=== PATIENT | male | born 1955 | race Caucasian/White ===

== ENCOUNTER 2022-08-27 09:31 | Observation (INO) ==
--- NOTE | 2022-03-08 11:14 | PAT Medication Instructions ---
Medication Instructions Date of Service March 08, 2022 Home Medications aspirin 81 mg tablet,delayed release (Adult Low Dose Aspirin) 81 mg PO HS cetirizine 10 mg capsule (Zyrtec) 10 mg PO QAM PRN ALLERGY RELIEF doxazosin 8 mg tablet 8 mg PO HS lisinopril 10 mg tablet 10 mg PO QAM simvastatin 20 mg tablet 20 mg PO HS multivitamin 1 tab PO QAM meloxicam 15 mg tablet 15 mg PO QAM PRN Pain ASK your surgeon for instructions meloxicam 15 mg tablet 15 mg PO QAM PRN Pain DO NOT take the morning of surgery cetirizine 10 mg capsule (Zyrtec) 10 mg PO QAM PRN ALLERGY RELIEF lisinopril 10 mg tablet 10 mg PO QAM multivitamin 1 tab PO QAM Take evening before surgery aspirin 81 mg tablet,delayed release (Adult Low Dose Aspirin) 81 mg PO HS (unless surgeon directed otherwise) doxazosin 8 mg tablet 8 mg PO HS simvastatin 20 mg tablet 20 mg PO HS OTHERWISE NOTHING TO EAT OR DRINK AFTER MIDNIGHT Other Notes If you have any questions please call us at [phone] or [phone] or [phone] or [phone]
--- NOTE | 2022-07-08 11:02 | Anesthesiology Consultation ---
Date of Service July 08, 2022 Assessment & Plan (1) Encounter for pre-operative examination: - Outpatient joint assessment: Patient is currently scheduled for inpatient pathway. If re-evaluated pending system levels during current pandemic/surgeon requests outpatient pathway, patient is acceptable candidate for outpatient joint program from anesthesia standpoint. Chart Review Chart Review: Acceptable Risk for Surgery and Patient seen in Pre Admission Testing Teaching & Discussion Pre-Anesthesia Teaching/Discussion Notes: Instructed NPO after midnight before surgery, except medications with 15 cc of water. Medication instructions provided according to the PAT guidelines. History Surgery Operation Date: 08/27/22 07:00 Proposed Procedures p Right Total Knee Arthroplasty - Markos Mendoza MD Height/Weight Height: 5 ft 8 in Weight: 79.379 kg Allergies Allergy/AdvReac Type Severity Reaction Status Date / Time Sulfa (Sulfonamide Allergy Intermediate Hives Verified 07/05/22 15:06 Antibiotics) Medications Home Medications Medication Instructions Recorded Confirmed Last Taken aspirin 81 mg tablet,delayed 81 mg PO HS 03/25/20 07/05/22 06/01/21 release (Adult Low Dose Aspirin) cetirizine 10 mg capsule (Zyrtec) 10 mg PO QAM PRN ALLERGY RELIEF 03/25/20 07/05/22 05/18/21 doxazosin 8 mg tablet 8 mg PO HS 03/25/20 07/05/22 06/01/21 lisinopril 10 mg tablet 10 mg PO QAM 03/25/20 07/05/22 06/01/21 simvastatin 20 mg tablet 20 mg PO HS 03/25/20 07/05/22 06/01/21 multivitamin 1 tab PO QAM 05/08/21 07/05/22 06/01/21 meloxicam 15 mg tablet 15 mg PO QAM PRN Pain 03/08/22 07/05/22 Unknown Wheeled Walker #1 ea 07/08/22 07/08/22 Unknown Past Medical History Medical History (Updated 07/08/22 @ 11:15 by Naomi Lewis PA-C) Asthma Allergy-induced; last inhaler use yrs ago BPH (benign prostatic hyperplasia) HTN (hypertension) controlled, stable per pt Hx of migraines Hx of reduction of closed fracture Left wrist Hyperlipidemia Patient denies h/o stroke, seizures, heart attack, heart failure, DM, blood clots or blood transfusions. Exercise / Class Metabolic Activity II 4-5 Yardwork/Stairs/Walk up hill (denies CP or SOB with 1 FOS) Past Family History Family History Father Family history of diabetes mellitus Other No family history of adverse response to anesthesia Past Surgical History Surgical History (Updated 07/08/22 @ 11:17 by Naomi Lewis PA-C) History of arthroscopy RT/LEFT KNEE History of cataract surgery R/L (2020) History of colonoscopy History of herniorrhaphy INGUINAL History of tooth extraction Hx of foot surgery pt unsure of side, BONE SPUR Past Anesthesia History No Hx of Anesthesia Complications and No Family Hx of Anesthesia Complications History of PONV No Hx of PONV and No Hx of Motion Sickness Social History Smoking Status: Former smoker tobacco type: cigarettes Do You Dip or Chew Tobacco: No Smoking End Date: 30+ years ago Hx Alcohol Use: Yes (hx-no longer drinks) Hx Substance Use: No substance use type: does not use Review of Systems Snoring, denies witnessed apneas. Patient denies chest pain, shortness of breath, dyspnea on exertion, reflux, fever, chills, cough, wheezing, or palpitations. Physical Exam Vital Signs Vitals BP 110/80 P 65 TEMP 98 SP02 96% on RA RESP 18 Physical Full cervical extension range of motion without pain TMD 3.5 finger breadths Mallampati Score 2 Dentition: intact, several crowns, implant right; denies loose teeth or bridges Lungs: normal respiratory effort. Clear throughout to auscultation, no adventitious breath sounds Cardiac: regular rate and rhythm, no murmurs noted Carotid arteries: negative bruit bilat Lab Results Anesthesia Preop Results Results Anesthesia Widget: WBC 4.20 K/ul (4.8-10.8) L 07/08/22 Hgb 14.0 g/dl (14.0-18.0) 07/08/22 Hct 40.8 % (40.1-51.0) 07/08/22 Plt 181 K/uL (130-400) 07/08/22 Na 139 mmol/L (136-145) 07/08/22 K 4.5 mmol/L (3.5-5.1) 07/08/22 Cl 108 mmol/L (98-107) H 07/08/22 CO2 26 mmol/L (21-32) 07/08/22 BUN 20 mg/dl (6-23) 07/08/22 Creat 0.89 mg/dl (0.6-1.4) 07/08/22 Glucose Level 99 mg/dl (70-99(Fasting)) 07/08/22 PT 10.5 Seconds (9.0-12.0) 07/08/22 PTT 27.0 Seconds (21.0-31.0) 07/08/22 INR 1.0 (0.9-1.1) 07/08/22 Blood Type A Positive 07/08/22 Antibody Screen NEGATIVE 07/08/22 Testing Electrocardiogram Date: 07/08/22 Sinus bradycardia, rate 53 bpm Incomplete RBBB Chest X-Ray Date: 07/08/22 Cardiomediastinal and hilar silhouettes are within normal limits. There is no pneumothorax, large pleural effusion or overt pulmonary edema. Hyperinflation with diaphragmatic flattening and cardiophrenic angle blunting suggestive of scarring/atelectasis. Age-indeterminate mild superior endplate compression at what appears to be the T5 vertebral body. Bones otherwise appear intact. IMPRESSION: No acute process. COVID-19 Risk Screen Screening Information COVID-19 Screen Date: 07/08/22 Exposure 21 Days Family/Household +COVID Last 21 Days: No Exposure 10 Days Any COVID Exposure Last 10 Days: No Symptoms Last 10 Days Experienced COVID Sx Last 10 Days: No + COVID 0-90 Days COVID + in Last 0-90 Days: No
--- NOTE | 2022-08-22 10:23 | History and Physical Report ---
CHIEF COMPLAINT: Bilateral knee pain and discomfort, right side greater than left. 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 He has got a long history of bilater al knee pain and discomfort, right side quite a bit worse than the left. He has a history of bilater al knee scopes done on different occasions by Dr. Woodard in [place]. More recently, he has got an injec tions, which do provide some relief, but it has become more limited over time. He describes global p ain in both knees. He has limited walking tolerance. 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 He would like to get back to doing that. PAST MEDICAL HISTORY: 1. Elevated cholesterol. 2. Osteoarthritis. PAST SURGICAL HISTORY: Includes: 1. Bilateral knee scopes one is 1998 and one in 2001. 2. Left wrist fracture surgery. 3. Heel spur surgery. 4. Hernia repair. ALLERGIES: SULFA. CURRENT MEDICATIONS: Include: 1. Lisinopril. 2. Doxazosin. 3. Simvastatin. 4. Meloxicam. 5. Aspirin. 6. Multivitamin. SOCIAL HISTORY: A 67-year-old male. Very active. 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 Does not smok e. FAMILY HISTORY: Noncontributory. REVIEW OF SYSTEMS: Negative for diabetes, neurologic problem, vascular problem, or bleeding disorder s. No chest pain, no shortness of breath. No history of DVT or PE. No known bleeding problems. PHYSICAL EXAMINATION: GENERAL: Shows a pleasant middle-aged male. Looks to be in excellent health. HEENT: Benign. NECK: Supple. No lymphadenopathy. LUNGS: Clear to auscultation. HEART: Has a regular rate and rhythm. ABDOMEN: Soft, nontender, nondistended. EXTREMITIES: Grossly neurovascularly intact except as follows. Examination of the right knee reveals the patient ambulates with minimal limp. He has got slight gene us alignment to his knee. He has got bony hypertrophy medially. Well-healed arthroscopic portal sit es. Range of motion 5-120. No instability. Physical examination of the left knee reveals a similar slight varus alignment. Tender over the medial joint line. Small knee effusion. Range of motion i s 0-125. No instability. X-RAYS: X-rays of the left knee from July ____ were reviewed. It shows advanced bilateral knee DJD, right side a bit worse than the left. He has got complete loss in his joint space. He has got subchondral sclerosis. ____. He has got a fairly low lying patella with some patella baja. ASSESSMENT: A 67-year-old very active gentleman with advanced bilateral knee degenerative joint dise ase, the right side worse than the left. He has failed conservative treatment. He is having trouble doing ____ activity due to the pain. PLAN: We talked about treatment. We will proceed with right total knee replacement. The risks and benefits of this procedure were explained to the patient and include but not limited to DVT, PE, deat h, infection, neurological injury, vascular injury, bleeding problem, pain, limited range of motion, stiffness, failure to relieve symptoms, incomplete relief of symptoms, need for further surgery in th e future. The patient understands and desires to proceed. Informed consent was obtained. As far as discharge plans, he is going to be discharged to home using [facility] program. He will take aspirin twice a day for DVT prophylaxis. Job ID: [id number]
[~2022-08-27 09:31] MED LIST: ACETAMINOPHEN 500 MG TAB PO SCH; BUPIVACAINE 0.5 % 5 MG/1 ML PF 10ML VIAL ONE; BUPIVACAINE LIPOSOME/PF 266 MG, BUPIVACAINE/EPINEPHRINE 50 ML, SODIUM CHLORIDE 0.9% 30 ... INFIL SCH; EPINEPHrine INJ 1 MG/ML AMP ONE; FAMOTIDINE 20 MG TAB PO SCH; LR 500ML BOLUS, THEN 15ML/HR IV SCH; LR 60ML/HR IV SCH; METOCLOPRAMIDE HCL 10 MG TABLET PO SCH; MIDAZOLAM HCL 1 MG/ML 2ML VIAL ONE; ROPIVACAINE 0.5% 5 MG/ML 30 ML VIAL ONE; Scopolamine 1 MG TDSY TD SCH; TRANEXAMIC ACID 1,000 MG **IV Intra-op IV SCH; [UNRECOGNIZED DRUG - REMARK] SCH; fentaNYL citrate 100 MCG/2 ML VIAL ONE
--- NOTE | 2022-08-27 11:11 | History & Physical Bridge Note ---
Date of Service August 27, 2022 History & Physical Bridge Note I have examined the patient, reviewed the History & Physical and in the interval since the performance of the History & Physical I have noted the following changes of clinical significance: no changes noted
[2022-08-27] MEDS ORDERED: fentaNYL citrate 100 MCG/2 ML VIAL IV PRN (12:54)
[2022-08-27] MEDS ORDERED: ONDANSETRON INJ 2 MG/ML 2 ML VIAL IV PRN ×2 (12:54→17:10)
[2022-08-27] MEDS ORDERED: HYDROmorphone INJ 2 MG/ML SYR/VIAL IV PRN (12:54)
[2022-08-27] MEDS ORDERED: ATROPINE SULFATE 0.1 MG/ML 10ML SYR IV PRN (12:54)
[2022-08-27] MEDS ORDERED: ePHEDrine sulfate 50 MG/ML AMP IV PRN (12:54)
[2022-08-27] MEDS ORDERED: PROMETHAZINE HCL 12.5 MG in SODIUM CHLORIDE 0.9% 50 ML IV PRN (12:54)
[2022-08-27] MEDS ORDERED: BUPIVACAINE/EPINEPHRINE 0.25% 1:200,000 30 ML VIAL ONE (13:08)
[2022-08-27] MEDS ORDERED: SODIUM CHLORIDE 0.9% PF 50 ML VIAL ONE (13:08)
[2022-08-27] MEDS ORDERED: BUPIVACAINE LIPOSOME 1.3% 266 MG/20 ML VIAL ONE (13:08)
[2022-08-27] MEDS: ceFAZolin 2000MG 2,000 MG/15 ML SYR IV SCH ×3 (13:30→21:21)
[2022-08-27] MEDS ORDERED: PROPOFOL IV EMULSION 10 MG/ML 20 ML VIAL IV ONE (13:37)
[2022-08-27] MEDS ORDERED: ONDANSETRON INJ 2 MG/ML 2 ML VIAL ONE (14:02)
[2022-08-27] MEDS ORDERED: PHENYLEPHRINE 100MCG/ML 5ML SYR ONE (14:03)
[2022-08-27] MEDS ORDERED: ePHEDrine sulfate 50 MG/ML AMP ONE (14:11)
--- NOTE | 2022-08-27 15:19 | Operative Report ---
PG Post Operative Report Pre & Post Diagnosis Operation Date: 08/27/22 12:30 Pre-Op Diagnosis: Right Knee Advanced Degenerative Joint Disease Post-Op Diagnosis: Right Knee Advanced Degenerative Joint Disease I identified the patient and participated in the time-out.: Yes Procedure Operation Date: 08/27/22 12:30 Actual Procedures p Right Total Knee Arthroplasty(Right) - Markos Mendoza MD Surgeon Markos Mendoza MD Birth Certificate Clerk Garth Xavier PA-C Estimated Blood Loss 50 Findings Consistent with Post-Op Diagnosis Operative findings were advanced right knee DJD. Extensive grade 4 [id number] disease of the medial and patellofemoral compartments. Lateral compartment was pretty well-preserved. Moderate-sized joint effusion. Fixed varus deformity to his knee. Fluids 1400 cc Specimens Right knee sent for pathology Anesthesia Type Spinal MAC Complications none Disposition Accompanied Patient To Recovery: No Indications Patient is a 67-year-old very active gentleman is had a long history of bilateral knee pain discomfort describes abrupt gotten worse over time he has been through extensive conservative treatment of years would become less successful. X-rays show progressive knee arthritis. He elected proceed with right total knee arthroplasty. Description of Procedure Operative implants consist of: 1. Biomet Vanguard size 70 right posterior stabilized femoral component. 2. Biomet size 75 tibial tray. 3. 14 mm posterior stabilized polyethylene insert. 4. 31 x 8 all Paller patella. The patient was taken the operating, identified, and placed on the operating table supine position protectors were properly padded. IV antibiotics tried by anesthesia team. A spinal anesthetic and abductor canal block had provided holding area. Jensen catheter was placed in sterile fashion for right Tetrick was then placed in the right lower extremities then prepped and draped in usual sterile fashion. The right leg was elevated exsanguinated with use of an Esmarch and the tourniquet was set at 300 mmHg. An anterior approach of the right knee was then performed to longitudinal incision centered over the patella. Sharp dissection was carried through subcutaneous tissue down the extensor mechanism. A medial parapatellar arthrotomy incision was made. Some subperiosteal dissection was carried out medially. The fat pad was resected from Neath patella tendon. Lateral patellofemoral ligament was released. Patella subluxated laterally knee was flexed. The osteophytes taken off distal femur. The ACL and PCL released from the distal femur the tibia subluxated anteriorly. The external tibial alignment jig was then placed in the interface the tibia and adjusted 14 mm medially. Proximal tibial cut was made to take about a millimeter of bone from the most deficient aspect medial tibial plateau. He had quite a bit of medial wear. The tibia was then sized to a size 75. There are some osteophytes taken off medial and posterior medially. Attention drawn the femur. The distal femur stem with a sharp drop with intramedullary canal was suction. A right 6 degree valgus cutting guide was placed. Distal femoral cutting block was pinned in place. Distal femoral cut was made to take an additional 3 mm bone off distal femur. Femur was then sized to a size 70. The AP cutting block was pinned parallel to the epicondylar axis which was 5 degrees of external rotation. Anterior cut, anterior chamfer, posterior cut, posterior chamfer cuts were made. The box cutting guide was placed in just slight lateral box cut was made. The knee was flexed. The remnants of the medial and lateral menisci were excised. The osteophytes taken off the posterior aspect the femur. A trial femoral component was placed. Tibial tray was pinned in maximum external rotation and the drill and stem punch used. Defect in proximal tibia for the tibial tray. The knee was then trialed and the 14 mm insert fit most appropriately. Attention drawn the patella. The patella was cleaned of all soft tissues. Patella thickness measured 23 mm in thickness and was cut down to 14. Was sized to a size 31 patella. The lug holes were drilled for the 31 patella. Lateral osteophytes removed. Patella button was placed. Knee was taken through range of motion patella tracked nicely with no thumbs test. Attention drawn to placing permanent components. All trial components were removed. A bone plug was placed in the distal femur limit blood loss. Double batch Palacos G cement was mixed. Biomet Vanguard size 70 right posterior stabilized femoral component, size 75 tibial tray, a 14 mm posterior stabilized polyethylene insert, and a 31 x 8 all Paller patella then cemented in place. Knee was brought out into full extension total cement hardened. Final cement check was then performed. Pericapsular tissues were injected with total of 100 cc of combination of 20 cc of Exparel, 30 cc normal saline, 50 cc of quarter percent Marcaine with epinephrine. Patient did receive 1 g tranexamic acid. The tourniquet was then let down for final tourniquet time of 54 minutes. Hemostasis reduced electrocautery. Extensor mechanism closed with combination 1 PDS suture #1 Vicryl suture in a [id number] fashion. The extensor mechanism was checked and found to be intact the subcutaneous tissu e then closed with 2 Dexon suture in buried interrupted fashion skin was closed skin sheri. Leg was then cleaned and dried a sterile dressing was Xeroform, 4 fours, sterile cast padding, Kimani bandage were applied. Patient then transferred to the recovery room in stable condition. Patient tolerated the procedure well and there were no complications. Garth Xavier, my physician retail assistant manager, was present for the entire procedure. His assistance was essential and required for appropriate patient positioning, prepping and draping, surgical exposure, performing the technical details of the operation, placement the implants, closure of the wound, and placement of the sterile bandage. I attest to the content of the Intraoperative Record and any orders documented therein. Any exceptions are noted below.
--- NOTE | 2022-08-27 15:36 | XRay Report ---
TWO VIEWS RIGHT KNEE CLINICAL HISTORY: Postoperative examination. FINDINGS: AP and crosstable lateral portable views of the right knee are obtained. A right knee arthr oplasty is in near anatomic alignment. There has been undersurface remodeling of the patella. No acut e fracture is seen. There are expected postoperative changes around the knee including skin clips, so ft tissue edema, and subcutaneous gas. IMPRESSION: Expected postoperative changes status post right knee arthroplasty. No acute fracture is seen. ACT 112: Negative or not required by law. Electronically signed by: Michael Wild M.D. 08/27/2022 3:35 PM
--- NOTE | 2022-08-27 16:28 | Anesthesiology Progress Note ---
Date of Service August 27, 2022 Anesthesia Post Procedure Vital Signs Vital Signs: Temp Pulse Resp BP Pulse Ox O2 Del Method O2 Flow Rate 08/27/22 16:15 36.2 C L 49 L 18 104/56 L 95 Room Air 08/27/22 16:05 36.2 C L 47 L 16 98/55 L 96 Room Air 08/27/22 15:55 49 L 12 96/51 L 99 Oxymask 3 08/27/22 15:45 47 L 13 104/54 L 98 Oxymask 3 08/27/22 15:35 85 16 105/68 98 Oxymask 5 08/27/22 15:25 36.1 C L 85 16 105/68 98 Oxymask 5 08/27/22 10:10 36.5 C 60 18 134/80 97 Room Air Transfer of Care Handoff Completed per policy Notes Mental Status: alert / awake / arousable Patient Amnestic to Procedure: Yes Nausea / Vomiting: adequately controlled Pain: adequately controlled Airway Patency, RR, SpO2: stable & adequate BP & HR: stable & adequate Hydration State: stable & adequate Neuraxial Anesthesia: was administered and sensory block is resolving Anesthetic Complications: no major complications apparent
[2022-08-27] MEDS ORDERED: ALUMINUM/MAGNESIUM SUSP 30 ML UDC PO PRN (17:10)
[2022-08-27] MEDS ORDERED: SODIUM CHLORIDE 0.9% 1000ML 1,000 ML IV SCH (17:10)
[2022-08-27] MEDS ORDERED: bisacodyL 10 MG SUPP PR PRN (17:10)
[2022-08-27] MEDS ORDERED: NALOXONE HCL 0.4 MG/1 ML VIAL/CARP IV PRN (17:10)
[2022-08-27] MEDS ORDERED: CETIRIZINE HCL 10 MG TABLET PO PRN (17:10)
[2022-08-27] MEDS ORDERED: HYDROmorphone INJ 0.5 MG/0.5 ML SYR IV PRN (17:10)
[2022-08-27] MEDS ORDERED: METOCLOPRAMIDE HCL INJ 5 MG/ML 2 ML VIAL IV PRN (17:10)
[2022-08-27] MEDS ORDERED: MAGNESIUM HYDROXIDE SUSP 30 ML UDC PO PRN (17:10)
[2022-08-27] MEDS ORDERED: Nursing to Pharmacy Communication SCH (17:30)
[2022-08-27] MEDS: KETOROLAC TROMETHAMINE 15 MG/ML VIAL IV SCH (18:18)
[2022-08-27] MEDS: ASCORBIC ACID 500 MG TAB PO SCH (18:18)
[2022-08-27] MEDS: Scopolamine CHECK PATCH PLACEMENT SCH (18:18)
[2022-08-27] MEDS: oxyCODONE HCL IR 5 MG TAB (IMMEDIATE RELEASE) PO PRN (19:32)
[2022-08-27] MEDS ORDERED: SENNA 8.6 MG TAB PO SCH (21:00)
[2022-08-27] MEDS ORDERED: SIMVASTATIN 20 MG TAB PO SCH (21:00)
[2022-08-27] MEDS ORDERED: DOXAZosin MESYLATE 4 MG TAB PO SCH (21:00)
[2022-08-27] MEDS ORDERED: DOCUSATE SODIUM/SENNA 50/8.6MG TAB PO SCH (21:00)
[2022-08-27] MEDS: DOCUSATE SODIUM 100 MG CAP PO SCH (21:13)
[2022-08-27] MEDS: ASPIRIN 81 MG ECTAB PO SCH (21:13)
[2022-08-27] MEDS: ACETAMINOPHEN 500 MG TAB PO SCH (21:14)
[2022-08-27] MEDS ORDERED: TRANEXAMIC ACID / 0.7% NACL 1,000 MG/100 ML BAG IV SCH (21:15)
[2022-08-27] MEDS: TAPENTADOL HCL ER 50 MG TABCR PO SCH (21:21)
[2022-08-28] MEDS: Scopolamine CHECK PATCH PLACEMENT SCH ×2 (00:47→08:03)
[2022-08-28] MEDS: KETOROLAC TROMETHAMINE 15 MG/ML VIAL IV SCH ×3 (00:48→11:06)
[2022-08-28] MEDS: oxyCODONE HCL IR 5 MG TAB (IMMEDIATE RELEASE) PO PRN ×2 (03:14→08:55)
[2022-08-28] MEDS: ceFAZolin 2000MG 2,000 MG/15 ML SYR IV SCH (05:46)
[2022-08-28] MEDS: ACETAMINOPHEN 500 MG TAB PO SCH (05:47)
[2022-08-28 06:25] LABS: Hematocrit (blood only) 37.7 % (40.1-51.0); Hemoglobin 12.6 g/dl (14.0-18.0); Mean Corpuscular Hemoglobin 28.2 pg (25.0-34.0); Mean Corpuscular Hgb Conc 33.4 g/dL (32.0-36.0); Mean Corpuscular Volume 84.3 fL (80.0-100.0); Mean Platelet Volume 9.9 fL (9.4-12.4); Platelet Count 152 K/uL (130-400); RDW Coefficient of Variation 13.9 % (11.5-14.5); RDW Standard Deviation 42.7 fL (36.4-46.3); Red Blood Count 4.47 M/uL (4.63-6.08); White Blood Count 5.98 K/ul (4.8-10.8)
[2022-08-28 06:45] LABS: Calcium 8.4 mg/dl (8.5-10.1); Potassium 4.1 mmol/L (3.5-5.1)
[2022-08-28 06:51] LABS: BUN Creatinine Ratio 10.9 (10-20); Creatinine Clr Calc Pharmacy 62.2 ml/min; Est GFR (African American) 79.5 ml/min; Est GFR (Non-African American) 68.6 ml/min
[2022-08-28] MEDS ORDERED: dexAMETHasone 10 MG in SYRINGE 0 ML IV SCH (08:00)
[2022-08-28] MEDS: TAPENTADOL HCL ER 50 MG TABCR PO SCH (08:01)
[2022-08-28] MEDS: ASCORBIC ACID 500 MG TAB PO SCH (08:02)
[2022-08-28] MEDS: DOCUSATE SODIUM 100 MG CAP PO SCH (08:02)
[2022-08-28] MEDS: ASPIRIN 81 MG ECTAB PO SCH (08:02)
--- NOTE | 2022-08-28 08:42 | Progress Notes ---
DATE OF SERVICE: 08/28/2022 SUBJECTIVE: A 67-year-old gentleman, postoperative day 1 from right knee replacement. He is doing p retty well. Pain is controlled. He describes it more as just a soreness. He has been up and walked around some. Hoping to go home. No chest pain or shortness of breath. Not feeling dizzy or lighth eaded. PHYSICAL EXAMINATION: VITAL SIGNS: Temperature 37.0. Vital signs are stable. GENERAL: Shows a pleasant middle-aged male. He was lying in bed, talking on the phone when I went i nto this morning. He looks completely comfortable. LUNGS: Clear to auscultation. HEART: Regular rate and rhythm. ABDOMEN: Soft, nontender, and nondistended. EXTREMITIES: Grossly neurovascularly intact except as follows. Examination of the right leg reveals the dressing to be clean, dry, and intact. Leg is well aligned. He can dorsiflex and plantarflex his foot appropriately. He is neurologically intact. LABORATORY DATA: Hemoglobin 12.6. Hematocrit 37.3. Electrolytes are stable. ASSESSMENT: A 67-year-old gentleman postoperative day 1 from right knee replacement, doing well. Pa in is controlled. He is neurologically intact. PLAN: 1. DVT prophylaxis includes thigh-high TEDs, SCDs, and aspirin twice a day. 2. PT/OT, weightbear as tolerated. Right total knee protocol. 3. Pain control, doing okay with current pain regimen. 4. Disposition: Plan to discharge to home with some home health later today if he does okay in ther apy. Job ID: [id number]
[2022-08-28] MEDS ORDERED: TAMSULOSIN HCL 0.4 MG CAP PO SCH (09:00)
[2022-08-28] MEDS ORDERED: lisinopril 10 MG TAB PO SCH (09:00)
[2022-08-28] MEDS ORDERED: MULTIVITAMIN TAB PO SCH (09:00)
[2022-08-28] MEDS ORDERED: NON-FORMULARY MEDICATION (Multivitamin Tablet) PO SCH (09:00)
--- NOTE | 2022-09-05 10:01 | Discharge Summary ---
Date of Service September 05, 2022 Discharge Data Procedures Performed Operation Date: 08/27/22 12:30 Actual Procedures p Right Total Knee Arthroplasty(Right) - Markos Mendoza MD Hospital Course (1) Status post total right knee replacement: This is a 67 year old patient admitted on 08/27/22 and underwent total knee arthroplasty. He tolerated the procedure well and there were no complications. Transferred to the PACU post op and later to the orthopedic floor for further care. He was given ancef for antibiotic prophylaxis. He was also given CLIFFORD stockings, SCDs, and aspirin for DVT prophylaxis. Hemoglobin, hematocrit, and vital signs were monitored during his hospital stay and remained stable. Did not require any blood transfusions. There were no complications during his hospital stay. By post op day #1 the patient was tolerating a regular diet, pain was reasonably controlled with oral pain medicine, and he was participating in physical therapy. On post op day #1 the patient was discharged home and set up with home health care. He was given printed discharge instructions including prescriptions for extra strength tylenol, aspirin, ketorolac, cefadroxil, zofran, senokot, and oxycodone. Continue physical therapy, weight bearing as tolerated. Continue CLIFFORD stockings. Follow up approximately 2 weeks post op or sooner if there are problems or concerns. Coding Level of Care Code None Diagnoses Status post total right knee replacement Z96.651
== END 2022-08-28 12:04 | disposition home health service (06) ==
LOC: 3E 09:31 → ASU 09:31

== ENCOUNTER 2023-08-17 09:16 | Observation (INO) ==
--- NOTE | 2023-07-20 15:59 | PAT Medication Instructions ---
Medication Instructions Date of Service July 20, 2023 Home Medications Medication Instructions Recorded Wheeled Walker #1 ea 07/08/22 acetaminophen 500 mg capsule 1,000 mg (2 x 500 mg) PO TID Pain 08/25/22 30 days #180 caps oxycodone 5 mg tablet 5 mg PO Q6 PRN pain #20 tabs 09/09/22 Sandeep Alfonso #1 ea 09/13/22 aspirin 81 mg tablet,delayed See Rx Instructions .Route 10/05/22 release .COMPLEX #90 tabs meloxicam 15 mg tablet 15 mg PO DAILY PRN pain #30 tabs 01/27/23 amoxicillin 500 mg tablet 2,000 mg (4 x 500 mg) PO ONCE #4 06/01/23 tabs doxycycline hyclate 100 mg tablet 100 mg PO BID 14 days #28 tabs 07/14/23 finasteride 5 mg tablet 5 mg PO DAILY #90 tabs 07/14/23 cetirizine 10 mg capsule (Zyrtec) 10 mg PO QAM PRN ALLERGY RELIEF doxazosin 8 mg tablet 8 mg PO HS lisinopril 10 mg tablet 10 mg PO QAM simvastatin 20 mg tablet 20 mg PO HS multivitamin 1 tab PO QAM acetaminophen 500 mg capsule 1,000 mg (2 x 500 mg) PO TID Pain oxycodone 5 mg tablet 5 mg PO Q6 PRN pain aspirin 81 mg tablet,delayed release See Rx Instructions .Route .COMPLEX meloxicam 15 mg tablet 15 mg PO DAILY PRN pain amoxicillin 500 mg tablet 2,000 mg (4 x 500 mg) PO ONCE doxycycline hyclate 100 mg tablet 100 mg PO BID finasteride 5 mg tablet 5 mg PO DAILY Continue as directed amoxicillin 500 mg tablet 2,000 mg (4 x 500 mg) PO ONCE ASK your surgeon for instructions meloxicam 15 mg tablet 15 mg PO DAILY PRN pain ASK your prescriber and surgeon aspirin 81 mg tablet,delayed release See Rx Instructions .Route .COMPLEX DO NOT take the morning of surgery cetirizine 10 mg capsule (Zyrtec) 10 mg PO QAM PRN ALLERGY RELIEF lisinopril 10 mg tablet 10 mg PO QAM multivitamin 1 tab PO QAM Take morning of surgery With a small sip of water, OTHERWISE NOTHING TO EAT OR DRINK AFTER MIDNIGHT: acetaminophen 500 mg capsule 1,000 mg (2 x 500 mg) PO TID Pain oxycodone 5 mg tablet 5 mg PO Q6 PRN pain (if needed) doxycycline hyclate 100 mg tablet 100 mg PO BID finasteride 5 mg tablet 5 mg PO DAILY Take evening before surgery doxazosin 8 mg tablet 8 mg PO HS simvastatin 20 mg tablet 20 mg PO HS acetaminophen 500 mg capsule 1,000 mg (2 x 500 mg) PO TID Pain oxycodone 5 mg tablet 5 mg PO Q6 PRN pain (if needed) doxycycline hyclate 100 mg tablet 100 mg PO BID Other Notes If you have any questions please call us at [phone] or [phone] or [phone] or [phone]
--- NOTE | 2023-07-29 13:43 | Anesthesiology Consultation ---
Date of Service July 29, 2023 Assessment & Plan (1) Encounter for pre-operative examination: - Infectious disease screening: Per assessment on 07/29/23: No known infectious disease contacts or current infectious disease symptoms. No noted recent Covid positive test result. - Outpatient joint assessment: Pt currently scheduled for inpatient pathway. If surgeon requests review for outpatient joint pathway, patient is an acceptable candidate for outpatient joint program from anesthesia standpoint pending surgeon's office assessment that patient is motivated, has good support and completes Same Day Joint Program preop requirements. - S/P Right TKA (08/27/22): SAB at L3-4 + PNB at [facility] - Urology visit (07/12/23): "New patient evaluation for BPH with LUTS, recurrent UTI, PSA screening.. BPH with LUTS- Currently managing with Doxazosin. PVR today acceptable. Does still have some urgency. Discussed adding Finasteride for dual therapy, he is agreeable. Use and side effects of medication discussed.. Recurrent UTI - Suspect related to BPH, however discussed other potential etiologies. Urine today suspicious for infection. Will send for urine PCR. Plan for renal/bladder ultrasound to evaluate for stones, hydronephrosis. Did encourage him to have repeat urine culture prior to upcoming orthopedic surgery in August. Discussed pursuing cystoscopy for full structural evaluation, he prefers observation for now.. PSA in May of this year was 3.74 (previously 2.83 last year). Plan to repeat PSA prior to follow-up visit." - As of PAT visit 07/29/23, patient s/p recent abx completion for UTI (asymptomatic). He states urology having patient updating urine testing this week (, [place])- Awaiting results. Patient otherwise acceptable risk for surgery. Chart Review Chart Review: Acceptable Risk for Surgery and Patient seen in Pre Admission Testing Teaching & Discussion Pre-Anesthesia Teaching/Discussion Notes: Instructed NPO after midnight before surgery,except medications with 15 cc of water. Medication instructions provided according to the PAT guidelines. History Surgery Operation Date: 08/17/23 07:00 Proposed Procedures p Left Total Knee Arthroplasty - Markos Mendoza MD Height/Weight Height: 5 ft 8 in Weight: 80.9 kg Allergies Allergy/AdvReac Type Severity Reaction Status Date / Time Sulfa (Sulfonamide Allergy Intermediate Hives Verified 07/20/23 09:07 Antibiotics) Medications Home Medications Medication Instructions Recorded Confirmed Last Taken cetirizine 10 mg capsule (Zyrtec) 10 mg PO QAM PRN ALLERGY RELIEF 03/25/20 07/20/23 05/18/21 doxazosin 8 mg tablet 8 mg PO HS 03/25/20 07/20/23 08/26/22 21:00 lisinopril 10 mg tablet 10 mg PO QAM 03/25/20 07/20/23 08/26/22 07:30 simvastatin 20 mg tablet 20 mg PO HS 03/25/20 07/20/23 08/26/22 21:00 multivitamin 1 tab PO QAM 05/08/21 07/20/23 08/26/22 08:00 Wheeled Walker #1 ea 07/08/22 07/12/23 Unknown acetaminophen 500 mg capsule 1,000 mg (2 x 500 mg) PO TID Pain 08/25/22 07/20/23 Unknown 30 days #180 caps oxycodone 5 mg tablet 5 mg PO Q6 PRN pain #20 tabs 09/09/22 07/20/23 Unknown Sandeep Hose #1 ea 09/13/22 07/12/23 Unknown aspirin 81 mg tablet,delayed See Rx Instructions .Route 10/05/22 07/20/23 Unknown release .COMPLEX #90 tabs meloxicam 15 mg tablet 15 mg PO DAILY PRN pain #30 tabs 01/27/23 07/20/23 Unknown amoxicillin 500 mg tablet 2,000 mg (4 x 500 mg) PO ONCE #4 06/01/23 07/20/23 Unknown tabs doxycycline hyclate 100 mg tablet 100 mg PO BID 14 days #28 tabs 07/14/23 07/20/23 Unknown finasteride 5 mg tablet 5 mg PO DAILY #90 tabs 07/14/23 07/20/23 Unknown Past Medical History Medical History (Updated 07/29/23 @ 13:55 by Olivia Saez) Recurrent UTI Currently on Doxycycline Following with [facility] Seasonal allergies History of COVID-19 04/2023- mild symptoms > resolved Hx of reduction of closed fracture Left wrist (20+ years ago) Asthma Allergy-induced BPH (benign prostatic hyperplasia) Hx of migraines Hyperlipidemia HTN (hypertension) controlled, stable per pt Exercise / Class Metabolic Activity II 4-5 Yardwork/Stairs/Walk up hill Past Family History Family History Father Family history of diabetes mellitus Other No family history of adverse response to anesthesia Past Surgical History Surgical History Status post total right knee replacement Right TKA (08/27/22): SAB at L3-4 + PNB at [facility] Hx of foot surgery R/t bone spur (unknown side) History of cataract surgery R/L (2020) History of arthroscopy R/L knee History of herniorrhaphy Inguinal History of colonoscopy History of tooth extraction Past Anesthesia History No Hx of Anesthesia Complications and No Family Hx of Anesthesia Complications History of PONV No Hx of PONV and No Hx of Motion Sickness Social History Smoking Status: Former smoker tobacco type: cigarettes Do You Dip or Chew Tobacco: No Smoking End Date: Quit 30-40 years ago Hx Alcohol Use: No (hx-no longer drinks) Hx Substance Use: No substance use type: does not use Review of Systems Patient denies chest pain, shortness of breath, dyspnea on exertion, fever, chills, cough, wheezing, palpitations. Physical Exam Vital Signs VITALS BP 112/65 P 67 TEMP 97.8 SP02 95%RA RESP 16 PHYSICAL Full cervical extension range of motion. Full TMJ range of motion. TMD 3.5 finger breaths Mallampati Score 1 Dentition: missing molars, + crown/implant Lungs: clear throughout to auscultation Cardiac: regular rate and rhythm, no murmurs noted Spine: normal Carotid arteries: negative bruit Extremities: no LE edema Lab Results Anesthesia Preop Results Results Anesthesia Widget: WBC 5.02 K/ul (4.8-10.8) 07/29/23 Hgb 13.3 g/dl (14.0-18.0) L 07/29/23 Hct 40.4 % (42.0-52.0) L 07/29/23 Plt 170 K/uL (130-400) 07/29/23 Na 138 mmol/L (136-145) 07/29/23 K 3.9 mmol/L (3.5-5.1) 07/29/23 Cl 105 mmol/L (98-107) 07/29/23 CO2 26 mmol/L (21-32) 07/29/23 BUN 20 mg/dl (6-23) 07/29/23 Creat 0.98 mg/dl (0.6-1.4) 07/29/23 Glucose Level 96 mg/dl (70-99(Fasting)) 07/29/23 PT 10.9 Seconds (9.0-12.0) 07/29/23 PTT 29 Seconds (21-31) 07/29/23 INR 1.0 (0.9-1.1) 07/29/23 Blood Type A Positive 07/29/23 Antibody Screen NEGATIVE 07/29/23 Testing Electrocardiogram Date: 07/29/23 SR with first degree AVB at 61bpm. "Otherwise normal ECG" No significant change compared to 07/08/2022 per bath design sales consultant comparison. Chest X-Ray Date: 07/29/23 FINDINGS: No lines and tubes are seen. The cardiomediastinal silhouette is normal. The lungs are clear. No evidence of pleural effusion or pneumothorax. IMPRESSION: No acute chest disease. Other Testing Renal ultrasound Date: 07/29/2022 Unremarkable examination and in particular no evidence of hydronephrosis.
--- NOTE | 2023-08-11 08:23 | History & Physical Report ---
Date of Service August 11, 2023 Assessment & Plan (1) Left knee DJD: 68-year-old active gentleman now a year out from a right knee replacement with left knee DJD. Is failed conservative treatment. He like to have his left knee fixed. He is happy with the right knee. Plan: When taken to the operating do a left total knee replacement. The risks Mente this procedure planed the patient clued but not limited to DVT PE infection neurological and vascular bleeding palm pain limb range of motion sepsis fairly with symptoms incomplete relief of symptoms need for further surgery in future excetra. The patient understands and desires to proceed. Informed consent was obtained. Patient has been seeing Dr. Crowley for some urinary tract issues up. His most recent urinalysis is clear of infection. He is planning on staying in the hospital overnight. Likely discharge postop day 1. Will plan on DVT prophylaxis including thigh-high teds, SCDs, aspirin twice a day. (2) Status post total right knee replacement: History of Present Illness Chief Complaint: . Persistent, progressive left knee pain and discomfort. Primary Care Provider: Hossein Mathews MD . Patient is a 68-year-old very active gentleman and now just about a year out from right knee replacement. He is got a long history of knee problems and had a both of his knees scoped by Dr. Woodard in the past. He underwent a right knee replacement about a year ago was done pretty well from this. He continues to be limited by left knee pain discomfort stiffness. He has been through extensive conservative treatment including oral medicines as well as injections with tried some temporary relief only. Pains become more disabling. 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 He now like to have his left knee fixed. Allergies Allergy/AdvReac Type Severity Reaction Status Date / Time Sulfa (Sulfonamide Allergy Intermediate Hives Verified 07/20/23 09:07 Antibiotics) Home Medications Medication Instructions Recorded Confirmed Type cetirizine 10 mg capsule (Zyrtec) 10 mg PO QAM PRN ALLERGY RELIEF 03/25/20 07/20/23 History doxazosin 8 mg tablet 8 mg PO HS 03/25/20 07/20/23 History lisinopril 10 mg tablet 10 mg PO QAM 03/25/20 07/20/23 History simvastatin 20 mg tablet 20 mg PO HS 03/25/20 07/20/23 History multivitamin 1 tab PO QAM 05/08/21 07/20/23 History Wheeled Walker #1 ea 07/08/22 07/12/23 Rx acetaminophen 500 mg capsule 1,000 mg (2 x 500 mg) PO TID Pain 08/25/22 07/20/23 Rx 30 days #180 caps oxycodone 5 mg tablet 5 mg PO Q6 PRN pain #20 tabs 09/09/22 07/20/23 Rx Sandeep Hose #1 ea 09/13/22 07/12/23 Rx aspirin 81 mg tablet,delayed See Rx Instructions .Route 10/05/22 07/20/23 Rx release .COMPLEX #90 tabs meloxicam 15 mg tablet 15 mg PO DAILY PRN pain #30 tabs 01/27/23 07/20/23 Rx amoxicillin 500 mg tablet 2,000 mg (4 x 500 mg) PO ONCE #4 06/01/23 07/20/23 Rx tabs doxycycline hyclate 100 mg tablet 100 mg PO BID 14 days #28 tabs 07/14/23 Rx finasteride 5 mg tablet 5 mg PO DAILY #90 tabs 07/14/23 07/20/23 Rx Past Med/Surg History Medical History (Updated 08/11/23 @ 08:22 by Markos Mendoza MD) Left knee DJD Recurrent UTI Currently on Doxycycline Following with [facility] Seasonal allergies History of COVID-19 04/2023- mild symptoms > resolved Hx of reduction of closed fracture Left wrist (20+ years ago) Asthma Allergy-induced BPH (benign prostatic hyperplasia) Hx of migraines Hyperlipidemia HTN (hypertension) controlled, stable per pt Surgical History Status post total right knee replacement Right TKA (08/27/22): SAB at L3-4 + PNB at [facility] Hx of foot surgery R/t bone spur (unknown side) History of cataract surgery R/L (2020) History of arthroscopy R/L knee History of herniorrhaphy Inguinal History of colonoscopy History of tooth extraction Family History Father Family history of diabetes mellitus Other No family history of adverse response to anesthesia Social History Smoking Status: Former smoker Tobacco Type: Cigarettes Second Hand Exposure: Yes (30+ years ago); Do You Dip or Chew Tobacco: No; Hx Alcohol Use: No (hx-no longer drinks) Hx Substance Use: No Preferred Language: Greenlandic Communication Ability: Effective [employer]icon[employer] Wafers Etcher Stripper Required: No Beliefs That Will Affect Care: None Current Living Situation: Spouse Feels Safe at Home: Yes Assistive Devices: Contacts and Glasses Review of Systems All systems reviewed & are unremarkable except as noted in HPI & below. Physical Exam . Physical examination was a healthy pleasant middle-age male. Looks in good health. Examination of the left knee reveals patient walks with a slight bit of a limp. Got varus alignment to his knee. Little bit of varus thrust as well. Is got bony perjury medially. Small knee effusion. Range of motion 5-1 20. No instability. No pain with hip motion for exam Examination the right knee reveals well-healed anterior incision. He is got anatomic alignment to the knee. Range of motion 0-1 25. Good straight leg raise. Constitutional WD/WN, vitals as above Respiratory normal respiratory effort, lungs clear to auscultation Cardiovascular RRR, no murmur, no edema Gastrointestinal (Abdomen) normal bowel sounds, soft, nontender, no hepatosplenomegaly Results & Data Results & Data Laboratory Results . Diagnostic Findings . PG Care Time/CCT Total # of Minutes Spent Total Time Spent with Patient: Total time spent is greater than 50% in coordination of care (as documented) at patient's floor/unit and/or counseling patient: Coding Level of Care Code None Diagnoses Left knee DJD M17.12 Status post total right knee replacement Z96.651
[~2023-08-17 09:16] MED LIST changes: -BUPIVACAINE LIPOSOME/PF 266 MG, BUPIVACAINE/EPINEPHRINE 50 ML, SODIUM CHLORIDE 0.9% 30 ... INFIL SCH; +CeleBREX 200 MG CAP PO SCH; -EPINEPHrine INJ 1 MG/ML AMP ONE; -MIDAZOLAM HCL 1 MG/ML 2ML VIAL ONE; +ROPIV 0.5% 246mg, Ketorolac 30mg, EPINEPHrine 0.5mg in NSS INFIL SCH; -[UNRECOGNIZED DRUG - REMARK] SCH; +ceFAZolin 2000MG 2,000 MG/15 ML SYR IV SCH; +dexAMETHasone**PF** 10 MG/ML VIAL IV SCH; -fentaNYL citrate 100 MCG/2 ML VIAL ONE
[2023-08-17] MEDS ORDERED: MIDAZOLAM HCL 1 MG/ML 2ML VIAL ONE (10:00)
[2023-08-17] MEDS ORDERED: fentaNYL citrate PF 100 MCG/2 ML VIAL ONE (10:00)
[2023-08-17] MEDS ORDERED: ATROPINE SULFATE 0.1 MG/ML 10ML SYR IV PRN (10:19)
[2023-08-17] MEDS ORDERED: fentaNYL citrate PF 100 MCG/2 ML VIAL IV PRN (10:19)
[2023-08-17] MEDS ORDERED: ePHEDrine sulfate 50 MG/ML AMP IV PRN (10:19)
[2023-08-17] MEDS ORDERED: ONDANSETRON INJ 2 MG/ML 2 ML VIAL IV PRN ×2 (10:19→13:55)
--- NOTE | 2023-08-17 10:20 | History & Physical Bridge Note ---
Date of Service August 17, 2023 History & Physical Bridge Note I have examined the patient, reviewed the History & Physical and in the interval since the performance of the History & Physical I have noted the following changes of clinical significance: no changes noted
[2023-08-17] MEDS ORDERED: BUPIVACAINE LIPOSOME 1.3% 266 MG/20 ML VIAL ONE (10:25)
[2023-08-17] MEDS ORDERED: PROPOFOL IV EMULSION 10 MG/ML 20 ML VIAL IV ONE ×2 (10:25→13:01)
[2023-08-17] MEDS ORDERED: SODIUM CHLORIDE 0.9% PF INJ 10 ML VIAL ONE (10:26)
[2023-08-17] MEDS ORDERED: BUPIVACAINE/EPINEPHRINE 0.5% MPF 1:200,000 30 ML VIAL ONE (10:26)
--- OUTSIDE RECORDS SUMMARY | 2023-08-17 11:28 | External Medical Summary | Summary of Care ---
Author Name Unknown Organization [facility] Address [address] [place] [address] Phone [phone] Care Team Providers Care Sub Assembly Team Worker Name Role Phone Hossein Mathews MD Primary Care Provider + Encounter Details Date Type Department Care Team ([facility] st Contact Info) Description 07/29/2023 Result Scan Unspecified Department <No scans attached> Allergies Active Allergy Reactions Criticality Noted Date Comments Sulfa Antibiotics Rash 07/17/2003 documented as of this encounter (statuses as of 08/10/2023) Medications Medication Sig Dispensed Refills Start Date End Date Status MULTIVITAMINS OR TABS daily 0 07/17/2003 Active ZYRTEC 10 MG PO TABSIndications:Sebastián rgic rhinitis due to other allergen one tab daily as needed for allergy symptoms 30 12 03/08/2007 Active ASPIRIN 81 MG PO CHEW One pill by mouth once a day with food 0 05/07/2014 Active Meloxicam 15 MG Tablet Take 1 Tablet by mouth daily as needed for Pain. for pain. 30 Tab 5 05/21/2015 Active Simvastatin 20 MG Oral Tablet (Zocor)Indications:D yslipidemia, goal to be determined take 1 tablet by mouth at bedtime 90 Tablet 1 07/01/2023 Active Lisinopril 10 MG Oral Tablet (Prinivil)Indication s:HTN, goal below 140/90 take 1 tablet by mouth once daily 90 Tablet 1 07/01/2023 Active Doxazosin Mesylate 8 MG Oral TabletIndications:BP H without obstruction/lower urinary tract symptoms take 1 tablet by mouth at bedtime 90 Tablet 1 07/01/2023 Active documented as of this encounter (statuses as of 08/10/2023) Active Problems Problem Noted Date Diagnosed Date Primary osteoarthritis of both knees 05/25/2016 Mixed hyperlipidemia 03/09/2010 HTN, GOAL BELOW 140/90 06/30/2009 Overview: Modified per HTN protocol #16. BPH with obstruction/lower urinary tract symptom s 09/02/2006 Family history of ischemic heart disease 004 documented as of this encounter (statuses as of 08/10/2023) Resolved Problems Problem Noted Date Diagnosed Date Resolved Date ADVANCE DIRECTIVE INFORMATION 04/07/2007 05/17/2023 Overview: No, Advance Directive brochure given to patient at prior appointment. CHR ALLRG CONJUNCTIV NEC 03/22/200605/2023 Achilles tendinitis 06/21/2005 05/27/20 17 Other allergic rhinitis 12/14/200405/08 Overview: ICD-10 update of inactive term Prostatitis 06/15/2004 05/30/2018 Overview: Chronic nonbacterial prostatitis with urge incontinence Special screening for malign ant neoplasms, colon 06/15/2004 05/27/2017 Overview: - Diverticulosis. - The exam was otherwise normal to the cecum. 08/12 EXTRINSIC ASTHMA, INTERMITTENT 07/17/2003 05/27/2017 HYPERTENSION NOS 07/17/2003 06/30/2009 Overview: Modified per HTN protocol #16. Urgency of urination 07/17/2003 009 Dyslipidemia, goal to be determined 07/17/2003 09/09/2010 documented as of this encounter (statuses as of 08/10/2023) Immunizations Name Administration Dates Next Due COVID-19 mRNA, LNP-s, No Pre serve, 2-Dose Series ([employer]) 01/06/2022,05/21/2021,10/15/2020,09/24 COVID-19, LNP-s, No Preserve , [place]-sucrose, Ages 12+ (Pfizer) 01/06/2022 Covid-19, Mrna, Lnp-s, Pf, B ivalent, 30 Mcg, IM, 12 yrs and above (Pfizer) 04/19/2022 H1N1 2009 Influenza, IM 09/08/2009 Pneumococcal Conjugate Vacci ne, 20-valent ([id number]) 05/19/2022 Pneumococcal Polysaccharide PPV23 (Pneumovax) 04/24/2021,03/06/2009 Season Influenza, Quad, PF, Adjuvanted, 65+ Yrs, IM (FLUAD) 04/23/2020 Seasonal Influenza Virus Vac cine, Unspecified Formulation 05/19/2022,04/24/2021,04/23/2020,07/03,05/30/2018,05/27/2017,05/25/2016 ,05/21/2015,05/01/2014,05/10/2013,09/2011,05/13/2011,06/01/2010, 9,06/10/2008,06/05/2007,06/29/2006,02/2003 Seasonal Influenza, PF, 6 M & above, IM , (FluLaval or Fluzone) 07/03/2019,05/30/2018,05/27/2017 Seasonal Influenza, Quadriva lent Hd (Fluzone Hd) 05/17/2023,05/19/2022,04/24/2021 Seasonal Influenza, Quadriva lent, No Preserve, IM 05/25/2016,05/21/2015 Seasonal Influenza, Split, I IV3, With Preserve, Inj 05/01/2014,05/10/2013,05/09/2012,05/13,06/01/2010,05/22/2009,06/10/2008 ,06/05/2007,06/29/2006 TD, Preservative Free 04/23/2020 TDAP (age 11 and older)(Adacel) 03/09/2010 Zoster Vaccine Recombinant (Shingrix) 04/17/2021 ,02/06/2021 documented as of this encounter Social History Tobacco Use Types Packs/Day Years Used Date Smoking Tobacco: Former Cigars Q uit: 05/10/2011 Smokeless Tobacco: Never Alcohol Use Standard Drinks/Week Comments No 0 (1 standard drink = 0.6 oz pur e alcohol) PHQ-2 Answer Date Recorded PHQ Adult Total Score 0 05/19/2022 Hunger Vital Sign Answer Date Recorded Worried About Running Out of Food in the Last Ye ar Never true 07/03/2019 Ran Out of Food in the Last Year Never true 07/03/2019 Sex and Gender Information Value Date Recorded Sex Assigned at Male 07/03/2019 8:53 AM EST Gender Identity Male 07/03/2019 8:53 AM EST Sexual Orientation Straight 05/03/2023 5: 51 PM EDT Sexual Orientation Choose not to disclose 2022 5:51 PM EDT Job Start Date Occupation Industry Not on file Not on file Not on file documented as of this encounter Plan of Treatment Upcoming Encounters Date Type Department Care Team (Late st Contact Info) Description 11/29/2023 8:40 AM EDT Office Visit General Internal Medicine [address] [place] [address] [place] [address] Hossein Mathews MD [address] [facility] [place] [address] Scheduled Procedures Name Priority Associated Diagnoses Date/Ti me COLONOSCOPY FLEXIBLE PROXIMA L DIAGNOSTIC Recall Encounter for screening colonoscopy Health Maintenance Due Date Last Done Comments Cologuard 1999 Fecal Occult Blood Test 1999 Sigmoidoscopy 1999 COVID-19 Vaccine ( season) 2023 04/19/2022, 01/06/2022, 01/06/2022, Additional history exists Depression Screening 05/19/2023 05/19/2022 GFR 05/13/2024 05/13/2023, 05/08, 04/16/2021, Additional history exists Albumin/Creatinine Ratio 05/19/2025 05/19/2022 Colonoscopy 11/13/2025 11/14/2015, 04/0 03/2016, 08/27/2004 Colorectal Cancer Screening 11/13/2025 Diabetes Screening 05/13/2026 05/13/2023, 1 , 04/16/2021, Additional history exists Lipid Panel 05/13/2028 05/13/2023, 05/08, 04/16/2021, Additional history exists DTaP,Tdap,and Td Vaccines (3 - Td or Tdap) 04/23/2030 04/23/2020, 03/09/2010, 08/08/2000 AAA Screening Completed 09/19/2015, 08/09/2007 Zoster Vaccines Completed 04/17/2021, 02/06/2021 Pneumococcal Vaccine: 65+ Years Completed 05/19/2022, 04/24/2021, 03/06/2009 Influenza Vaccine (FLU shot) Completed 05/2023, 05/19/2022, 05/19/2022, Additional history exists GARDASIL-HPV IMMUNIZATION SERIES Aged Out No longer eligible based on patient's age to complete this topic Hepatitis B Aged Out No longer eligi ble based on patient's age to complete this topic MENINGOCOCCAL (MENACTRA/MENVEO) Aged Out No longer eligible based on patient's age to complete this topic documented as of this encounter Medical Devices Not on filedocumented as of this encounter Procedures Procedure Name Priority Date/Time Associated Diagnosis Comments RADIOLOGY SCANNED RESULT 07/29/2023 documented in this encounter Results * RADIOLOGY SCANNED RESULT (07/29/2023) 07/29/2023 No Physician Data Unknown DIAGNOSTIC RAD IOLOGY SERVICES documented in this encounter Care Teams Sub Assembly Team Worker Relationship Specialty Start Date End Date Hossein Mathews MD [address] [place] [address] PCP - General Internal Medicine 04/24/21 documented as of this encounter
--- OUTSIDE RECORDS SUMMARY | 2023-08-17 11:28 | External Medical Summary ---
Author Name Unknown Address Unknown Organization [id number]:[facility] [place] [address] [facility] [address] Laboratory Report Ordering Provider Test Date Status EVELIN COPELAND 2023 10:36:55 Final Observation Date Value Abnormality Reference (Units) Status Bacteria identified in Specimen by Culture 2023 10:36:55 No significant growth Final Test: Culture, Urine, Quanti tative
Specimen Source: Urine, Clean Catch
Specimen Type: Urine
Specimen Date: 2023 10:36 AM
Result Date: 08/04/2023 1:27 PM
Result Status: Final result
Resulting Lab: [facility] [place]
[address]
[facility] [id number]

CULTURE

No significant growth

null Performing Location [facility] [place] [address] [facility] [address]
--- OUTSIDE RECORDS SUMMARY | 2023-08-17 11:28 | External Medical Summary | Summary of Care ---
Author Name Unknown Organization [facility] Address [address] [place] [address] Phone [phone] Care Team Providers Care Rn Med Surg Name Role Phone Hossein Mathews MD Primary Care Provider + Reason for Visit * Reason Comments Outpatient Testing Encounter Details Date Type Department Care Team (Late st Contact Info) Description 2023 11:00 AM EST Laboratory Laboratory [facility] [address] [place] [id number] [facility] [address] [place] [address] Urinary tract infection Allergies Active Allergy Reactions Criticality Noted Date Comments Sulfa Antibiotics Rash 07/17/2003 documented as of this encounter (statuses as of 2023) Medications Medication Sig Dispensed Refills Start Date [...] as of this encounter (statuses as of 2023) Active Problems Problem Noted Date Diagnosed Date Primary osteoarthritis of both knees 05/25/2016 Mixed hyperlipidemia 03/09/2010 HTN, GOAL BELOW 140/90 06/30/2009 Overview: Modified per HTN protocol #16. BPH with obstruction/lower urinary tract symptom s 09/02/2006 Family history of ischemic heart disease 004 documented as of this encounter (statuses as of 2023) Resolved Problems Problem Noted Date Diagnosed Date [...] as of this encounter (statuses as of 2023) Immunizations Name Administration Dates Next Due COVID-19 mRNA, LNP-s, No Pre serve, 2-Dose Series ([employer]) 01/06/2022,05/21/2021,10/15/2020,09/24 COVID-19, LNP-s, No Preserve , [place]-sucrose, Ages 12+ (Pfizer) 01/06/2022 Covid-19, Mrna, Lnp-s, Pf, B ivalent, 30 Mcg, IM, 12 yrs and above (Pfizer) 04/19/2022 H1N1 2009 Influenza, IM 09/08/2009 Pneumococcal Conjugate Vacci ne, 20-valent ([id number]) 05/19/2022 Pneumococcal Polysaccharide PPV23 (Pneumovax) 04/24/2021,03/06/2009 Season [...] AM EDT Office Visit General Internal Medicine [facility] [address] [place] [address] Hossein Mathews MD 200 [place] [address] Pending Results Name Type Priority Associated Diagnoses Date /Time CULTURE, URINE, QUANTITATIVE Lab Routine Urinary tract infection 2023 10:36 AM EST Scheduled Procedures Name Priority Associated Diagnoses Date/Ti [...] Not on filedocumented as of this encounter Visit Diagnoses Diagnosis Urinary tract infection Urinary tract infection, site not specified documented in this encounter Care Teams Rn Med Surg Relationship Specialty Start Date End Date Hossein Mathews MD [address] [place] [address] PCP - General Internal Medicine 04/24/21 documented as of this encounter
--- NOTE | 2023-08-17 12:37 | Operative Report ---
PG Post Operative Report Pre & Post Diagnosis Operation Date: 08/17/23 10:40 Pre-Op Diagnosis: Left Knee Degenerative Joint Disease Post-Op Diagnosis: Left Knee Degenerative Joint Disease I identified the patient and participated in the time-out.: Yes Procedure Operation Date: 08/17/23 10:40 Actual Procedures p Left Total Knee Arthroplasty(Left) - Markos Mendoza MD Surgeon Markos Mendoza MD Supervisor Bonding Garth Xavier PA-C Estimated Blood Loss 50 Findings Consistent with Post-Op Diagnosis Operative findings reveal advanced left knee medial compartment DJD with full- thickness cartilage loss and eburnation of the anteromedial compartment of the knee. The rest of the knee looks really benign and normal with some mild age- related changes. He had a varus deformity to his knee with a moderate-sized kne e joint effusion. Specimens Left knee sent for pathology. 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 He had his right knee replaced about a year ago and is done pretty well with this. Continued be limited by left knee pain discomfort. X-rays show advanced medial compartment arthritis. He elected proceed with total knee arthroplasty. Description of Procedure Operative implants consist of: 1 Biomet Vanguard size 72.5 left posterior stabilized femoral component. 2. Biomet size 75 tibial tray. 3. 10 mm post stabilized polyethylene insert. 4. 31 x 8 all poly patella. The patient was taken to the operating, identified, and placed on the operating table in the supine position. All contact areas were properly padded. IV antibiotics tried by anesthesia team. Spinal anesthetic and adductor canal block had been provided in the holding area. Left thigh tent was then placed. Left lower extremity was then prepped and draped in usual sterile fashion. The left leg was elevated exsanguinated with use of an Esmarch and tourniquet placed at 300 mmHg. An anterior approach the left knee was then performed to longitudinal incision centered over the patella. Sharp dissection was carried through subcutaneous tissue down the extensor mechanism. A medial parapatellar arthrotomy incision was made. Some subperiosteal dissection was carried out medially. The fat pad was resected from Neath patella tendon. The lateral patella ligament was released. The patella subluxated laterally and the knee was flexed. The osteophyte taken off distal femur. The ACL and PCL were then released from distal femur the tibia subluxated anteriorly. The external tibial alignment jig was then placed in the interface the tibia and adjusted 14 mm medially. Proximal tibial cut was made remove about a millimeter of bone at most from the most deficient aspect medial tibial plateau. Some osteophytes taken off medial and posterior medially. The tibia was sized to a size 75. Attention drawn the femur. The distal femur was then with a sharp drill. Intramedullary canal was suction. A left 6 degree valgus cutting guide was placed. This femoral cutting block was pinned in place. This femoral cut was made to take an additional 3 mm of bone off distal femur. The femur was then sized to a size 72.5. The AP cutting block was pinned parallel to the epicondylar axis which was 5 degrees of external rotation. The anterior cut, anterior chamfer, posterior cut, posterior chamfer cuts were made. The box cutting guide was placed in just slight lateral and the box cut was made. The knee was flexed. The remnants of the medial and lateral menisci were excised. The osteophytes taken off the posterior aspect of femur. A trial femoral component was placed. The tibial tray was pinned Tammy external rotation and the drill and stem punch used to create defect in proximal tibia for the tibial tray. The knee was then trialed and 10 mm insert fit most appropriately. Attention drawn the patella. The patella was cleaned of all soft tissues. Patella thickness measured 21 mm in thickness was cut down to 13. Was sized to a size 31 patella. The lug holes were drilled for the patella component. The lateral osteophyte was removed. Patella button was placed. Knee was taken through range of motion patella tracked nicely with no thumbs test. Attention drawn to placing permanent components. All trial components were removed. Bone plug was placed into the distal femur limit blood loss. Double batch Palacos G cement was mixed. BiomWalkHubguard size 72.5 left Po stabilized femoral component, a size 75 tibial tray, a 10 mm post stabilized polyethylene insert, and a 31 x 8 all poly were then cemented in place. The knee was brought out into full extension till cement hardened. Final cement check was then performed. Pericapsular tissues were injected with total 100 cc of combination of 20 cc of Exparel, 30 cc normal saline, 50 cc of quarter percent Marcaine with epinephrine. Patient did receive 1 g tranexamic acid. The tourniquet was then let down for final tourniquet time of 54 minutes. Hemostasis assured use electrocautery. Extensor Meclomen closed with combination 1 PDS suture #1 Vicryl suture in a [id number] fashion. Extensor Meclomen checked found intact and subcutaneous tissues then closed with 2 Dexon suture in buried interrupted fashion skin was closed skin sheri. Leg was then cleaned and dried and sterile dressing with Xeroform, 4 fours, sterile cast padding, Kimani bandage were applied. Patient then transferred to the recovery room in stable condition. Patient tolerated procedure well and there were no complications. Garth Xavier, my physician optometrist assistant, was present for the entire procedure. His assistance was essential and required for appropriate patient positioning, prepping and draping, surgical exposure, performing the technical details of the operation, placement the implants, closure of the wound, and placement of the sterile bandage. I attest to the content of the Intraoperative Record and any orders documented therein. Any exceptions are noted below.
--- NOTE | 2023-08-17 13:09 | XRay Report ---
LEFT KNEE 2 VIEWS History: Left total knee arthroplasty. Degenerative arthritis. Postop. FINDINGS: The patient is status post a left total knee arthroplasty. The hardware is intact. No fract ure or dislocation. Skin sheri are in place. IMPRESSION: Left total knee arthroplasty. No evidence for hardware complication. ACT 112: Negative or not required by law. Electronically signed by: Ulices Farias M.D. 08/17/2023 1:08 PM
[2023-08-17] MEDS ORDERED: TAMSULOSIN HCL 0.4 MG CAP PO PRN (13:55)
[2023-08-17] MEDS ORDERED: NALOXONE HCL 0.4 MG/1 ML VIAL/CARP IV PRN (13:55)
[2023-08-17] MEDS ORDERED: METOCLOPRAMIDE HCL INJ 5 MG/ML 2 ML VIAL IV PRN (13:55)
[2023-08-17] MEDS ORDERED: HYDROmorphone INJ 0.5 MG/0.5 ML SYR IV PRN (13:55)
[2023-08-17] MEDS ORDERED: ALUMINUM/MAGNESIUM SUSP 30 ML UDC PO PRN (13:55)
[2023-08-17] MEDS ORDERED: MAGNESIUM HYDROXIDE SUSP 30 ML UDC PO PRN (13:55)
[2023-08-17] MEDS ORDERED: bisacodyL 10 MG SUPP PR PRN (13:55)
[2023-08-17] MEDS ORDERED: oxyCODONE HCL IR 5 MG TAB (IMMEDIATE RELEASE) PO PRN (13:55)
[2023-08-17] MEDS ORDERED: ASPIRIN 81 MG ECTAB PO SCH (13:55)
[2023-08-17] MEDS ORDERED: CETIRIZINE HCL 10 MG TABLET PO PRN (14:11)
[2023-08-17] MEDS: SODIUM CHLORIDE 0.9% 1,000 ML IV SCH (14:30)
[2023-08-17] MEDS: KETOROLAC TROMETHAMINE 15 MG/ML VIAL IV SCH ×2 (14:34→20:08)
[2023-08-17] MEDS: ACETAMINOPHEN 500 MG TAB PO SCH ×2 (14:41→20:08)
--- NOTE | 2023-08-17 16:25 | Anesthesiology Progress Note ---
Date of Service August 17, 2023 Anesthesia Post Procedure Vital Signs Vital Signs: Temp Pulse Pulse Pulse Pulse Resp BP 08/17/23 15:55 36.5 C 52 L 16 103/65 08/17/23 15:00 36.3 C L 70 16 119/82 08/17/23 14:25 36.3 C L 75 16 117/76 08/17/23 13:55 36.9 C 64 14 101/64 08/17/23 13:35 59 L 17 107/66 08/17/23 13:20 67 17 109/66 08/17/23 13:10 36.4 C L 63 20 107/64 08/17/23 13:00 68 22 116/74 08/17/23 12:50 61 12 105/66 08/17/23 12:40 54 L 12 107/66 08/17/23 12:30 61 12 104/65 08/17/23 12:23 36.2 C L 76 10 L 106/61 08/17/23 09:38 36.5 C 85 20 132/76 Pulse Ox O2 Del Method O2 Flow Rate 08/17/23 15:55 96 Room Air 08/17/23 15:00 96 Room Air 08/17/23 14:25 97 Room Air 08/17/23 13:55 97 Room Air 08/17/23 13:35 95 Room Air 08/17/23 13:20 96 Room Air 08/17/23 13:10 98 Room Air 08/17/23 13:00 99 Room Air 08/17/23 12:50 98 Room Air 08/17/23 12:40 99 Oxymask 4 08/17/23 12:30 98 Oxymask 7 08/17/23 12:23 98 Oxymask 7 08/17/23 09:38 97 Room Air Pain Intensity Left Knee: Pain Intensity: 8 Notes Mental Status: alert / awake / arousable Patient Amnestic to Procedure: Yes Nausea / Vomiting: adequately controlled Pain: adequately controlled Airway Patency, RR, SpO2: stable & adequate BP & HR: stable & adequate Hydration State: stable & adequate Neuraxial Anesthesia: was administered and sensory block is resolving Anesthetic Complications: no major complications apparent
[2023-08-17] MEDS: Scopolamine CHECK PATCH PLACEMENT SCH (16:27)
[2023-08-17] MEDS: ASCORBIC ACID 500 MG TAB PO SCH (18:11)
[2023-08-17] MEDS ORDERED: TRANEXAMIC ACID / 0.7% NACL 1,000 MG/100 ML BAG IV SCH (19:00)
[2023-08-17] MEDS: ceFAZolin 2000MG 2,000 MG/15 ML SYR IV SCH (19:31)
[2023-08-17] MEDS: ASPIRIN 81 MG ECTAB PO SCH (20:09)
[2023-08-17] MEDS: DOCUSATE SODIUM 100 MG CAP PO SCH (20:14)
[2023-08-17] MEDS ORDERED: DOXAZosin MESYLATE 4 MG TAB PO SCH (21:00)
[2023-08-17] MEDS ORDERED: SENNA 8.6 MG TAB PO SCH ×2 (21:00)
[2023-08-17] MEDS ORDERED: SIMVASTATIN 20 MG TAB PO SCH (21:00)
[2023-08-17] MEDS ORDERED: NON-FORMULARY MEDICATION (Doxycycline Hyclate 100 mg tablet) PO SCH (21:00)
[2023-08-18] MEDS: SODIUM CHLORIDE 0.9% 1,000 ML IV SCH (00:07)
[2023-08-18] MEDS: Scopolamine CHECK PATCH PLACEMENT SCH ×2 (02:17→08:17)
[2023-08-18] MEDS: ceFAZolin 2000MG 2,000 MG/15 ML SYR IV SCH (02:18)
[2023-08-18] MEDS: KETOROLAC TROMETHAMINE 15 MG/ML VIAL IV SCH ×2 (02:18→08:18)
[2023-08-18 06:34] LABS: Hematocrit (blood only) 34.9 % (42.0-52.0); Hemoglobin 11.7 g/dl (14.0-18.0); Mean Corpuscular Hgb Conc 33.5 g/dL (32.0-36.0); Mean Corpuscular Volume 83.5 fL (80.0-100.0); Mean Platelet Volume 9.9 fL (9.4-12.4); Platelet Count 155 K/uL (130-400); RDW Coefficient of Variation 13.3 % (11.5-14.5); RDW Standard Deviation 40.9 fL (36.4-46.3); Red Blood Count 4.18 M/uL (4.70-6.10); White Blood Count 12.76 K/ul (4.8-10.8)
[2023-08-18 07:14] LABS: BUN Creatinine Ratio 21.6 (10-20); Calcium 8.4 mg/dl (8.6-10.3); Creatinine Clr Calc Pharmacy 76.6 ml/min; Est GFR (African American) 101.6 ml/min; Est GFR (Non-African American) 87.6 ml/min; Potassium 3.8 mmol/L (3.5-5.1)
--- NOTE | 2023-08-18 07:14 | Surgery Progress Note ---
Date of Service August 18, 2023 Assessment & Plan (1) Status post left knee replacement: Plan: 68-year-old gentleman postop day 1 from left knee replacement doing well. Pain is controlled. His neurofunction has been slow to return. I still seems to have a peroneal nerve or weakness. I think this is all related to the block and local anesthetic. Dressings not too tight. Not much swelling. Knee is well aligned. Plan: 1 DVT prophylaxis including thigh-high teds, SCDs, aspirin twice a day. 2. PT OT. Weight-bear as tolerated. Left total knee protocol. What to be careful with his the leg and instruct him on appropriate walking until his nerve function returns. 3. Pain control doing okay with current pain regimen #4 leg weakness. I think this is related to the block and local anesthetic. I think this will return over the next 24 hours. His dressings not too tight. Leg is well aligned. Surgery was uncomplicated. 4. Disposition plan to discharge to home after therapy today. Admission and Anticipated Discharge Date Admission Date: August 17, 2023 Subjective 68-year-old gentleman postop day 1 from left knee replacement. He is doing well. Still does not have all the function back in his left leg yet. Is slowly coming back. Reports fairly minimal pain. No chest pain or shortness of breath Physical Exam Physical Exam: Examination of the left leg reveals a dressing clean dry and intact. Leg is well aligned he can plantarflex his foot but still cannot quite dorsiflex his foot. He reports fairly normal sensation. Got brisk refill. The dressings and not excessively tight in any fashion. Not much swelling. Respiratory: normal respiratory effort, lungs clear to auscultation Cardiovascular: RRR, no murmur, no edema Gastrointestinal (Abdomen): normal bowel sounds, soft, nontender, no hepatosplenomegaly Results & Data Vital Signs (Past 12 Hours) Vital Signs Temp Pulse Resp BP Pulse Ox O2 Del Method 08/18/23 02:21 36.8 C 67 18 126/71 95 Room Air 08/17/23 23:22 36.8 C 68 18 106/59 L 94 Room Air 08/17/23 22:00 Room Air 08/17/23 19:26 36.3 C L 59 L 16 112/73 94 Room Air Laboratory Results Hemoglobin 11.7. Hematocrit 34.9. Electrolytes pending PG Care Time/CCT Total # of Minutes Spent Total Time Spent with Patient: Total time spent is greater than 50% in coordination of care (as documented) at patient's floor/unit and/or counseling patient: Coding Level of Care Code 33892 Post Operative Follow-Up Diagnoses Status post left knee replacement Z96.652
[2023-08-18] MEDS ORDERED: dexAMETHasone 10 MG in SYRINGE 0 ML IV SCH (08:00)
[2023-08-18] MEDS: ASCORBIC ACID 500 MG TAB PO SCH (08:17)
[2023-08-18] MEDS: DOCUSATE SODIUM 100 MG CAP PO SCH (08:17)
[2023-08-18] MEDS: ACETAMINOPHEN 500 MG TAB PO SCH (08:18)
[2023-08-18] MEDS: ASPIRIN 81 MG ECTAB PO SCH (08:18)
--- NOTE | 2023-08-18 08:56 | Discharge Summary ---
Date of Service August 18, 2023 Admission HPI (Per Admitting) . Patient is a 68-year-old very active gentleman and now just about a year out from right knee replacement. He is got a long history of knee problems and had a both of his knees scoped by Dr. Woodard in the past. He underwent a right knee replacement about a year ago was done pretty well from this. He continues to be limited by left knee pain discomfort stiffness. He has been through extensive conservative treatment including oral medicines as well as injections with tried some temporary relief only. Pains become more disabling. 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 He now like to have his left knee fixed. Admission Exam (Per Admitting) . Physical examination was a healthy pleasant middle-age male. Looks in good health. Examination of the left knee reveals patient walks with a slight bit of a limp. Got varus alignment to his knee. Little bit of varus thrust as well. Is got bony perjury medially. Small knee effusion. Range of motion 5-1 20. No instability. No pain with hip motion for exam Examination the right knee reveals well-healed anterior incision. He is got anatomic alignment to the knee. Range of motion 0-1 25. Good straight leg raise. Principal Diagnosis Same as "Discharge Diagnosis" noted below under Discharge Instructions. Discharge Exam Examination of the left leg reveals a dressing clean dry and intact. Leg is well aligned he can plantarflex his foot but still cannot quite dorsiflex his foot. He reports fairly normal sensation. Got brisk refill. The dressings and not excessively tight in any fashion. Not much swelling. Discharge Data Procedures Performed Operation Date: 08/17/23 10:40 Actual Procedures p Left Total Knee Arthroplasty(Left) - Markos Mendoza MD Ordered Studies 08/17/23 05:00 US - OR guided needle placemen Routine Hospital Course (1) Status post left knee replacement: On August 17, 2023 Chandan arrived at [facility] and underwent a left total knee arthroplasty with Dr. Mendoza with no complications. He had a spinal anesthetic. Postoperatively, he was started on aspirin for DVT prophylaxis and transferred to the general orthopedic floor in stable condition. His hospital course was uneventful. On postoperative day #1, his vital signs were stable and his pain was well-controlled. He participated well with physical therapy working on ambulation and range of motion exercises. He was then discharged home in stable condition. He will follow-up with Dr. Mendoza in 2 weeks for postoperative care. PG Care Time/CCT Total # of Minutes Spent Total Time Spent with Patient: Total time spent is greater than 50% in coordination of care (as documented) at patient's floor/unit and/or counseling patient: Discharge Plan Discharge Items Patient Disposition: Home - Home Health Services Reason For Visit: Left Knee Degenerative Joint Disease Discharge Diagnosis: Left Knee Replacement Activity: Per Instructions section Weightbearing: Full weightbearing Non-emergency contact: Surgeon Call non-emergency contact if: you have any medication questions Follow-up/Referrals: Hossein Mathews MD [Primary Care Provider] - Diet: Regular Addtl Attending Provider Instructions: ACTIVITY RECOMMENDATIONS: Physical Therapy: * You will go to physical therapy three times each week for four to six weeks after your surgery in order to regain your knee range of motion and to retrain your knee to work properly. * It is just as important to make sure you are getting your knee perfectly straight as it is to regain your knee bend. * Taking a pain pill an hour before therapy can help you have a more productive and comfortable therapy session. Home Exercise: * You were shown a series of exercises (heel props, heel slides, etc.) in the hospital. Do these exercises three to four times each day including the exercises you were shown in physical therapy. Walking: * Get up and walk several times each day. For the first four weeks, try not to stand or walk for more than one hour at a time. If you do stand or walk for more than one hour, you will not hurt anything, but your knee and leg will likely swell. * As you feel comfortable, you may change from the walker or crutches to a cane and then to independent walking. MEDICATIONS: New Medicine: * You will likely be taking one or more of these medications: 1. Oxycodone - A quick and shorter-acting pain medication. Take one to two tablets every six hours to lessen your pain. 2. Aspirin - Thins your blood to lessen the chance of forming a blood clot. * The most common side effects of pain medicine and iron are nausea and constipation. If nausea or constipation is too much of a problem or if you have any questions about your new medicines or doses, call [facility] at . We will try to help you manage these issues. "VERY IMPORTANT TO READ AND REVIEW" Pain: * The immediate post-operative period after knee replacement surgery is often quite painful. * You are given a prescription for pain medicine. You should take it, as directed, when you need it, especially before physical therapy and before going to bed. Pain that interferes with sleep is very common and can last several months. * You will likely need pain medicine for the first four to six weeks. It will not stop all of the pain. The pain will lessen and as you feel better, you may change to milder pain medicine such as Tylenol. * The most common side effects of pain medicine are nausea and constipation, so don't take more than you need. SPECIAL CARE INSTRUCTIONS: TEDs/Elastic Stockings: * The white elastic stockings help limit swelling and prevent blood clots from forming in your legs. The more you wear them, the more they work. * Wear them for six weeks after knee replacement surgery and four weeks after partial knee replacement. Incision Site Care: * Remove dressing postoperative day 2 and then shower. Keep direct shower pressure off the incision site. * After showering, cover sheri with dry gauze and change daily or more frequently if the dressing is getting saturated with drainage. * Use the CLIFFORD stockings to hold dressing in place. DO NOT apply tape on the skin. * May completely stop using bandage if wound is dry and no drainage * Sheri are removed between 2 and 3 weeks post-op. If your follow-up appointment is made before 2 weeks, please have your appointment re- scheduled. It is too early to remove the sheri. Prevention of Infection: * Take antibiotics one hour before any dental cleaning, dental work, urological procedure, gastrointestinal procedure or any invasive surgery in order to prevent your new joint from getting infected. * You may get the antibiotics from the doctor performing the procedure or you may call our office at [phone] before and we will call in a pres cription to the pharmacy of your choice. Things to Watch For: * Drainage from the incision site that occurs more than one week after your surgery. * Severely increased knee/leg pain or swelling. * Increased redness at the incision site. * Fever above 102 degrees Fahrenheit. * Unusual chest pain or shortness of breath. * Unusual pain or burning with urination. Call [facility] at [phone] with any of the above problems or if you have any questions about your medicines or recovery. FOLLOW UP VISIT: Make an appointment to see your doctor for approximately two weeks after surgery for a progress check and staple removal by calling the office at [phone]. Pending Studies at Discharge: No Stand-Alone Forms: My [facility] [employer], Smoking Cessation Medications and DC Order Prescriptions: Continued oxycodone 5 mg tablet 5 mg PO Q6 PRN (Reason: pain) Qty: 20 0RF Rx Instructions: Take as needed for Pain. amoxicillin 500 mg tablet 2,000 mg PO ONCE Qty: 4 3RF Rx Instructions: 4 tabs 1 hour prior to procedure finasteride 5 mg tablet 5 mg PO DAILY Qty: 90 1RF oxycodone 5 mg tablet 5 - 10 mg PO Q6 PRN (Reason: pain) Qty: 40 0RF Rx Instructions: Take as needed for pain ondansetron 4 mg tablet,disintegrating 4 mg PO Q8 PRN (Reason: nausea) Qty: 20 1RF Rx Instructions: Take as needed for nausea ketorolac 10 mg tablet 10 mg PO Q6 5 Days Qty: 20 0RF Rx Instructions: Take 4 times per day with food for 5 days to lessen pain and swelling. sennosides [Senokot] 8.6 mg tablet 8.6 mg PO BID 14 Days Qty: 28 0RF Rx Instructions: Take two times a day to prevent/treat constipation acetaminophen [Tylenol Extra Strength] 500 mg tablet 1,000 mg PO TID 30 Days Qty: 180 0RF Rx Instructions: Take 3 times per day to lessen pain. aspirin [Juli Low Dose Aspirin] 81 mg tablet,delayed release (DR/EC) 81 mg PO BID 45 Days Qty: 90 0RF Rx Instructions: Take to prevent blood clots. lisinopril 10 mg tablet 10 mg PO QAM doxazosin 8 mg tablet 8 mg PO HS simvastatin 20 mg tablet 20 mg PO HS Zyrtec 10 mg capsule 10 mg PO QAM PRN (Reason: ALLERGY RELIEF) (DME) Kori Brown [facility] [place] See Rx Instructions .MEDSUPPLY Qty: 1 0RF Rx Instructions: As directed (DME) Clifford Alfonso [facility] See Rx Instructions .MEDSUPPLY Qty: 1 0RF Rx Instructions: As directed multivitamin Tablet 1 tab PO QAM Discontinued meloxicam 15 mg tablet 15 mg PO DAILY PRN (Reason: pain) Qty: 30 2RF Rx Instructions: Take with food Admission Data Admit Date/Time: 08/17/23 12:30 Attending Provider: Markos Mendoza Admit Provider: Markos Mendoza Primary Care Provider: Hossein Mathews Other Providers: [facility]
[2023-08-18] MEDS ORDERED: FINASTERIDE 5 MG TAB PO SCH (09:00)
[2023-08-18] MEDS ORDERED: MULTIVITAMIN TAB PO SCH (09:00)
[2023-08-18] MEDS ORDERED: lisinopril 10 MG TAB PO SCH (09:00)
[2023-08-18] MEDS ORDERED: NON-FORMULARY MEDICATION (Multivitamin Tablet) PO SCH (09:00)
== END 2023-08-18 11:01 | disposition home health service (06) ==
LOC: 3E 09:16 → ASU 09:16